=== PATIENT | female | born 2000 | race Hispanic/Latino ===

== ENCOUNTER 2018-01-14 05:13 | Emergency (ER) | payer OTHER, SELFPAY ==
[2018-01-14] MEDS ORDERED: DIPHENHYDRAMINE 25 MG TAB/CAP ONE (05:43)
[2018-01-14] MEDS ORDERED: DEXAMETHASONE 10 MG/ML VIAL ONE (05:43)
[2018-01-14] MEDS ORDERED: FAMOTIDINE 20 MG TAB ONE (05:44)
--- NOTE | 2018-01-14 05:47 | ER ---
Nurse's Notes [facility] Name: Aaron Zhu Age: 17 yrs Sex: Female : 2000 Arrival Date: 01/14/2018 Time: 05:13 Bed 7 Private MD: Diagnosis: Drug reaction Presentation: 01/14 05:28 Presenting complaint: Patient states: she started having an allergic reaction to a new bb acne medication which she started approx 2 weeks ago, symptoms started on Friday with itching and intermittent "bumps" she also has swelling to her hands and her hands, soles of her feet and knees are sore. Transition of care: patient was not received from another setting of care. Onset: The symptoms/episode began/occurred suddenly. Anaphylaxis evaluation, no signs or symptoms of anaphylaxis were noted. Onset of symptoms was January 11, 2018. Risk Assessment: Do you want to hurt yourself or someone else? Patient reports no desire to harm self or others. Initial Sepsis Screen: Does the patient meet any 2 criteria? No. Patient's initial sepsis screen is negative. Does the patient have a suspected source of infection? No. Patient's initial sepsis screen is negative. Care prior to arrival: OTC allergy relief and Cortizone cream. 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 - Social history:: Smoking status: Patient/guardian denies using tobacco, Patient/guardian denies using alcohol, street drugs. - Ebola Screening: : No symptoms or risks identified at this time. Screenin:52 Abuse screen: Denies threats or abuse. Denies injuries from another. Nutritional ak1 screening: No deficits noted. Tuberculosis screening: No symptoms or risk factors identified. Fall Risk None identified. Assessment: 05:48 General: Appears uncomfortable, Behavior is calm, cooperative. Pain:. ak1 05:49 Neuro: No deficits noted. Cardiovascular: No deficits noted. Respiratory: Airway is ak1 patent Respiratory effort is even, unlabored, Breath sounds are clear bilaterally. GI: No signs and/or symptoms were reported involving the gastrointestinal system. : No signs and/or symptoms were reported regarding the genitourinary system. EENT: No signs and/or symptoms were reported regarding the EENT system. Derm: 05:55 Derm: redness and swelling to bilateral hands. Musculoskeletal: No signs and/or ak1 symptoms reported regarding the musculoskeletal system. Vital Signs: 05:32 BP 123 / 62; Pulse 115; Resp 18 S; Temp 98.9(O); Pulse Ox 97% on R/A; Weight 61.23 kg bb (R); Height 5 ft. 5 in. (165.10 cm) (R); Pain 4/10; 05:54 BP 128 / 91; Pulse 100; Resp 18; Temp 98.9; Pulse Ox 99% on R/A; Pain 4/10; ak1 05:32 Body Mass Index 22.46 (61.23 kg, 165.10 cm) ED Course: 05:13 Patient arrived in ED. es 05:19 Enrico Alonso MD is Attending Physician. ps1 05:21 Nam Guevara, MARAL is Primary Nurse. ao 05:31 Triage completed. bb 05:32 Arm band placed on Patient placed in an exam room, on a stretcher, on pulse oximetry. bb Family accompanied patient. 05:52 Patient has correct armband on for positive identification. Bed in low position. Call ak1 light in reach. Side rails up X 1. Adult w/ patient. Pulse ox on. NIBP on. 05:52 No provider procedures requiring assistance completed. Patient did not have IV access ak1 during this emergency room visit. Administered Medications: 05:46 Drug: Decadron 10 mg {Note: given PO per verbal orders from ERP.} Route: IM; Site: ak1 Other; 05:56 Follow up: Response: No adverse reaction ak1 05:47 Drug: Pepcid 20 mg Route: PO; ak1 05:56 Follow up: Response: No adverse reaction ak1 05:47 Drug: Benadryl 50 mg Route: PO; ak1 05:57 Follow up: Response: No adverse reaction ak1 Outcome: 05:46 Discharge ordered by . ps1 05:56 Discharged to home ambulatory, with family. ak1 05:56 Condition: good 05:56 Discharge instructions given to patient, family, Instructed on discharge instructions, follow up and referral plans. Demonstrated understanding of instructions, follow-up care. 06:05 Patient left the ED. ak1 Signatures: Rina Stewart Brenda, RN RN bb Krenek, Amber, RN RN ak1 Nam Guevara RN RN ao Singer, Phillip, MD MD ps1
--- NOTE | 2018-01-14 05:47 | EDPHYS ---
Physician Documentation [facility] Name: Aaron Zhu Age: 17 yrs Sex: Female : 2000 Arrival Date: 01/14/2018 Time: 05:13 Bed 7 Private MD: ED Physician Enrico Alonso HPI: 01/14 05:35 This 17 yrs old Female presents to ER via Ambulatory with complaints of ps1 Allergic Reaction. 05:35 patient states that she might be having an allergic reaction. She started taking ps1 tetracycline for acne and now has small papules and red rash. Has had sun exposure. No fever. No JULIAN. . 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 - Social history:: Smoking status: Patient/guardian denies using tobacco, Patient/guardian denies using alcohol, street drugs. - Ebola Screening: : No symptoms or risks identified at this time. ROS: 05:35 Constitutional: Negative for fever, chills, and weight loss, Eyes: Negative for injury, ps1 pain, redness, and discharge, Cardiovascular: Negative for chest pain, palpitations, and edema, Respiratory: Negative for shortness of breath, cough, wheezing, and pleuritic chest pain, Abdomen/GI: Negative for abdominal pain, nausea, vomiting, diarrhea, and constipation, Back: Negative for injury and pain, MS/Extremity: Negative for injury and deformity. 05:35 Skin: Positive for rash, swelling. Exam: 05:35 Constitutional: This is a well developed, well nourished patient who is awake, alert, ps1 and in no acute distress. Head/Face: Normocephalic, atraumatic. Eyes: Pupils equal round and reactive to light, extra-ocular motions intact. Lids and lashes normal. Conjunctiva and sclera are non-icteric and not injected. ENT: Nares patent. No nasal discharge, no septal abnormalities noted. Tympanic membranes are normal and external auditory canals are clear. Oropharynx with no redness, swelling, or masses, exudates, or evidence of obstruction, uvula midline. Mucous membranes moist. Neck: Trachea midline, no thyromegaly or masses palpated, and no cervical lymphadenopathy. Supple, full range of motion without nuchal rigidity, or vertebral point tenderness. No Meningismus. Chest/axilla: Normal chest wall appearance and motion. Nontender with no deformity. No lesions are appreciated. Cardiovascular: Regular rate and rhythm. No gallops, murmurs, or rubs. Normal PMI, no JVD. No pulse deficits. Respiratory: Lungs have equal breath sounds bilaterally, clear to auscultation and percussion. No rales, rhonchi or wheezes noted. No increased work of breathing, no retractions or nasal flaring. Abdomen/GI: Soft, non-tender, with normal bowel sounds. No distension or tympany. No guarding or rebound. No evidence of tenderness throughout. 05:35 Skin: miliaria. Vital Signs: 05:32 BP 123 / 62; Pulse 115; Resp 18 S; Temp 98.9(O); Pulse Ox 97% on R/A; Weight 61.23 kg bb (R); Height 5 ft. 5 in. (165.10 cm) (R); Pain 4/10; 05:54 BP 128 / 91; Pulse 100; Resp 18; Temp 98.9; Pulse Ox 99% on R/A; Pain 4/10; ak1 05:32 Body Mass Index 22.46 (61.23 kg, 165.10 cm) MDM: 05:41 Data reviewed: vital signs, nurses notes. ED course: stop medication. Decadron, ps1 benadryl, and pepcid. 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 . 05:46 Patient medically screened. ps1 Administered Medications: 05:46 Drug: Decadron 10 mg {Note: given PO per verbal orders from ERP.} Route: IM; Site: ak Other; 05:56 Follow up: Response: No adverse reaction ak1 05:47 Drug: Pepcid 20 mg Route: PO; ak1 05:56 Follow up: Response: No adverse reaction ak1 05:47 Drug: Benadryl 50 mg Route: PO; ak1 05:57 Follow up: Response: No adverse reaction ak1 Disposition: 01/14/18 05:46 Discharged to Home. Impression: Drug reaction. - Condition is Stable. - Discharge Instructions: Drug Rash. - Medication Reconciliation Form, Thank You Letter, Antibiotic Education, Prescription Opioid Use form. - Follow up: Emergency Department; When: As needed; Reason: Trouble breathing, Worsening of condition. Follow up: Private Physician; Reason: Recheck today's complaints, Continuance of care, Re-evaluation by your physician. Signatures: Jammie Patel RN RN bb Kaelyn Meyers RN RN ak1 Enrico Alonso MD MD ps1 Corrections: (The following items were deleted from the chart) 06:05 05:46 01/14/2018 05:46 Discharged to Home. Impression: Drug reaction. Condition is ak1 Stable. Forms are Medication Reconciliation Form, Thank You Letter, Antibiotic Education, Prescription Opioid Use. Follow up: Emergency Department; When: As needed; Reason: Trouble breathing, Worsening of condition. Follow up: Private Physician; Reason: Recheck today's complaints, Continuance of care, Re-evaluation by your physician. ps1
== END 2018-01-14 06:05 | disposition home or self-care (01) ==
LOC: ER 05:13
DX: T36.4X5A Adverse effect of tetracyclines, initial encounter (principal); Y92.9 Unspecified place or not applicable
CPT/HCPCS: 96372; 99283; J1100